=== PATIENT | male | born 1995 | race Native Hawaiian/Other Pacific Islander ===

== ENCOUNTER 2019-10-02 15:05 | Emergency (ER) | payer OTHER ==
[~2019-10-02] VITALS: Ht 167.6 cm; Wt 56.7 kg
[2019-10-02 15:29] LABS: PLATELET COUNT 223 K/uL (142-355)
[2019-10-02 16:53] VITALS: TEMP 98.6
[2019-10-02 19:25] VITALS: BP 144/93
== END 2019-10-02 19:30 | disposition home or self-care (01) ==
LOC: ED 15:07
PROVIDERS: Family Medicine
DX: I10 Essential (primary) hypertension (principal); N18.6 End stage renal disease; Z99.2 Dependence on renal dialysis; J30.9 Allergic rhinitis, unspecified
CPT/HCPCS: 36415; 80053; 85027; 87502; 93005; 96374; 99283; 99284; J0360

== ENCOUNTER → 2019-10-02 15:10 | Outpatient (CLI) | payer OTHER ==
[~2019-10-02 15:10] MED LIST: CARV25TA PO; HYDRALAZINE HY100 MG PO
== END | disposition short-term general hospital (02) ==
LOC: AMB 15:10
DX: I10 Essential (primary) hypertension (principal); R51 Headache
CPT/HCPCS: A0425; A0429

== ENCOUNTER 2019-10-05 15:23 | Emergency (ER) | payer OTHER ==
[~2019-10-05] VITALS: Ht 167.6 cm; Wt 59.0 kg
[2019-10-05 15:55] VITALS: TEMP 97.8
[2019-10-05] MEDS ORDERED: HYDRALAZINE HY100 MG PO (16:31)
[2019-10-05] MEDS ORDERED: CARV25TA PO (16:31)
[2019-10-05 18:15] VITALS: BP 160/100
== END 2019-10-05 18:48 | disposition home or self-care (01) ==
LOC: ED 15:23
DX: I10 Essential (primary) hypertension (principal); Z99.2 Dependence on renal dialysis
CPT/HCPCS: 99282

== ENCOUNTER 2019-10-20 14:24 | Emergency (ER) | payer OTHER ==
[~2019-10-20] VITALS: Ht 167.6 cm; Wt 59.0 kg
[2019-10-20 14:24] VITALS: TEMP 99
[2019-10-20 14:58] LABS: PLATELET COUNT 181 K/uL (142-355)
[2019-10-20 15:00] LABS: POTASSIUM 2.8 mmol/L (3.6-5.2); SODIUM 137 mmol/L (136-145)
[2019-10-20 15:29] LABS: PARTIAL THROMBOPLASTIN TIME 27.4 SECONDS (24.5-33.6)
[2019-10-20 16:24] VITALS: BP 156/88
== END 2019-10-20 16:22 | disposition home or self-care (01) ==
LOC: ED 14:24
PROVIDERS: Hospitalist
DX: I16.0 Hypertensive urgency (principal); N18.6 End stage renal disease; Z99.2 Dependence on renal dialysis; E87.6 Hypokalemia
CPT/HCPCS: 36415; 80053; 82550; 83880; 84484; 85027; 85610; 85730; 93005; 96374; 99284; J0360; J3490

== ENCOUNTER 2020-06-18 11:27 | Outpatient (CLI) | payer OTHER | END 2020-06-18 20:01 | disposition home or self-care (01) | LOC: LABW 11:27 | DX: D64.89 Other specified anemias (principal) | CPT/HCPCS: 85018 ==

== ENCOUNTER 2020-06-30 12:43 | Outpatient (CLI) | payer OTHER | END 2020-06-30 20:09 | disposition home or self-care (01) | LOC: LAB 12:43 | DX: D64.89 Other specified anemias (principal) | CPT/HCPCS: 85018 ==

== ENCOUNTER 2020-11-22 13:11 | Outpatient (CLI) | payer OTHER | END 2020-11-22 22:59 | disposition home or self-care (01) | LOC: LAB 13:11 | PROVIDERS: ATTEND Physician Assistant Medical | DX: D64.9 Anemia, unspecified (principal) | CPT/HCPCS: 85014; 85018 ==

== ENCOUNTER 2020-12-01 14:10 | Outpatient (CLI) | payer OTHER | END 2020-12-01 21:16 | disposition home or self-care (01) | LOC: LAB 14:10 | PROVIDERS: ATTEND Physician Assistant Medical | DX: D64.89 Other specified anemias (principal) | CPT/HCPCS: 85014; 85018 ==

== ENCOUNTER 2023-07-04 10:54 | Outpatient (CLI) | payer OTHER ==
[2023-07-05] MEDS ORDERED: COZAAR100 MG PO (19:33)
[2023-07-05] MEDS ORDERED: OMEP40CA PO (19:33)
[2023-07-05] MEDS ORDERED: MINOXIDIL2.5 MG PO (19:33)
[2023-07-05] MEDS ORDERED: LIDOCAINE-PRILOCAINE TOP (19:36)
[2023-07-05] MEDS ORDERED: RENA-VITE RX PO (19:36)
[2023-07-05] MEDS ORDERED: SEVE800T PO (19:37)
[2023-07-05] MEDS ORDERED: RENVELA800 MG PO ×2 (19:37→19:38)
== END 2023-07-04 18:58 | disposition home or self-care (01) ==
LOC: LAB 10:54
PROVIDERS: ATTEND Physician Assistant Medical
DX: D64.89 Other specified anemias (principal); N18.6 End stage renal disease
CPT/HCPCS: 85014; 85018

== ENCOUNTER 2023-07-05 16:40 | Observation (INO) | payer OTHER ==
[~2023-07-05] VITALS: Ht 167.6 cm; Wt 54.1 kg
[2023-07-05 16:56] VITALS: BP 141/81; TEMP 98.3
[2023-07-05 17:16] LABS: PLATELET COUNT 106 K/uL (142-355)
[2023-07-05 17:28] LABS: POTASSIUM 4.7 mmol/L (3.6-5.2)
[2023-07-05 18:12] VITALS: BP 147/94; TEMP 98.4; Ht 167.6 cm; Wt 54.1 kg
[2023-07-05] MEDS ORDERED: OMEP40CA PO (19:33)
[2023-07-05] MEDS ORDERED: MINOXIDIL2.5 MG PO (19:33)
[2023-07-05] MEDS ORDERED: COZAAR100 MG PO (19:33)
[2023-07-05] MEDS ORDERED: LIDOCAINE-PRILOCAINE TOP (19:36)
[2023-07-05] MEDS ORDERED: RENA-VITE RX PO (19:36)
[2023-07-05] MEDS ORDERED: RENVELA800 MG PO ×2 (19:37→19:38)
[2023-07-05] MEDS ORDERED: SEVE800T PO (19:37)
[2023-07-05 20:00] VITALS: BP 145/81; TEMP 98.4
[2023-07-05 20:56] VITALS: BP 149/92; TEMP 98
[2023-07-05 20:57] VITALS: BP 149/92; TEMP 98.2
[2023-07-06 00:56] VITALS: BP 128/79; TEMP 97
[2023-07-06 00:57] VITALS: BP 125/78; TEMP 98.3
[2023-07-06 01:15] VITALS: BP 134/80; TEMP 98
== END 2023-07-06 06:00 | disposition home or self-care (01) ==
LOC: ED 16:40 → MED/SURG 17:42
PROVIDERS: ADMIT Family Medicine; ATTEND Internal Medicine
DX: D64.89 Other specified anemias (principal); N18.6 End stage renal disease; Z99.2 Dependence on renal dialysis; I12.0 Hypertensive chronic kidney disease with stage 5 chronic kidney disease or end stage renal disease
CPT/HCPCS: 36415; 36430; 80053; 85027; 86850; 86900; 86901; 86922; 99221; 99283; G0378; P9016